=== PATIENT | male | born 1975 | race Caucasian/White ===

== ENCOUNTER 2022-07-30 06:50 | Day surgery (SDC) | payer OTHER, SELFPAY ==
[2022-07-30 07:22] VITALS: BP 141/93; PULSE 86; RESP 16; TEMP 36.6; O2SAT 99
[2022-07-30 07:24] VITALS: BMI 30.4
[2022-07-30] MEDS: LACTATED RINGERS 1000 ML 1,000 ML 100 ML IV (07:45)
--- NOTE | 2022-07-30 07:56 | SUR.PREOP ---
DIFFICULT IV START.
[2022-07-30] MEDS: CEFAZOLIN 2 GM INJ IVP (07:57)
[2022-07-30] MEDS: BUPIVACAINE 0.25% 30 ML 20 ML INJECTION (09:00)
[2022-07-30 09:25] VITALS: BP 102/75; PULSE 86; RESP 16; TEMP 36.3; O2SAT 96
--- NOTE | 2022-07-30 09:26 | W.ANESCHARGE ---
Anesthesia Charges Start Date/Time Anesthesia Start Date: 07/30/22 Anesthesia Start Time: 07:57 Stop Date/Time Anesthesia Stop Date: 07/30/22 Anesthesia Stop Time: 09:24 Summary Emergency: No
[2022-07-30 09:40] VITALS: BP 107/65; PULSE 86; RESP 16; TEMP 36.3; O2SAT 96
--- NOTE | 2022-07-30 09:47 | PM.GSPRC ---
Operative Note Date of procedure: 07/30/22 Type of Procedure: 1. Excision of symptomatic left inguinal skin lesion. 2. Excision of right upper arm mass. Procedure Description: After discussing the risks and benefits of the procedure, the patient signed informed consent.? The operative site was marked and the patient was brought to the operating room and placed on the operating table in supine position.? Care was taken to pad the patient's pressure points.?? The patient was then sedated by anesthesia.?? The operative site was then prepped and draped in the usual sterile fashion.? A time-out was then performed. ? We first started with excision of the left inguinal lesion. Local anesthetic was injected in the surgical site. An elliptical skin incision was made with a scalpel excising the area of induration and verrucous appearance of the skin. Dermis and soft tissue were divided with cautery. The excision was carried down to the muscle fascia. Medially, the dermis and soft tissues were indurated. This excision included the majority of indurated tissue. There was not a cyst noted in the excised tissue. There was no tract going down to the underlying muscle fascia or tissues. The ellipse of skin and soft tissue was then excised and marked with a single stitch superior and double lateral. This was sent to pathology. It was measuring 6 x 2 cm. Hemostasis was achieved with cautery. The soft tissue and dermis were reapproximated in layers with interrupted 2-0 and 3-0 Vicryl sutures. The skin was closed with a running 4-0 Monocryl stitch. The incision was 7 cm in length. Exofin was applied over the incision. I then turned my attention to the right upper arm mass. Patient's tattoo extended to the superior portion of the mass. Local anesthetic was injected at the surgical site. An oblique elliptical skin incision was made just inferior to the patient's tattoo and over the palpable mass. Dermis and subcutaneous fat were divided with cautery. With cautery and blunt finger dissection the mass was mobilized and dissected of the muscle fascia. The mass was measuring 6 x 7 cm. Additional local anesthetic was injected in the surgical site. Hemostasis was achieved with cautery. The mass was then sent to pathology. The incision was closed in layers with interrupted 2-0 and 3-0 Vicryl sutures. The skin was closed with a running 4-0 Monocryl stitch. The length of the incision was 6 cm. Exofin was placed over the incision. ? The patient was then woken and transported to the recovery area in stable condition. ? The patient tolerated the procedure well. Findings: Indurated skin and soft tissue in the left groin. The right upper arm mass had an appearance of lipoma. Anesthesia: MAC and local Surgeon: José Miguel Liu MD Estimated blood loss (mL): 5 Condition: stable Disposition: same day
[2022-07-30 09:55] VITALS: BP 107/65; PULSE 74; RESP 16; O2SAT 96
--- NOTE | 2022-07-30 11:38 | W.ANESCHARGE ---
Anesthesia Charges Start Date/Time Anesthesia Start Date: 07/30/22 Anesthesia Start Time: 07:57 Stop Date/Time Anesthesia Stop Date: 07/30/22 Anesthesia Stop Time: 09:24 Summary Emergency: No
== END 2022-07-30 10:14 | disposition home or self-care (01) ==
PROVIDERS: Visit Provider Surgery
PROC: (CPT 11406; principal; 2022-07-30 08:00)
DX: D17.21 Benign lipomatous neoplasm of skin and subcutaneous tissue of right arm (principal); L57.0 Actinic keratosis; L98.8 Other specified disorders of the skin and subcutaneous tissue
CPT/HCPCS: 11406; 12032; 24071; 00400; 88304; 88305; J0690; J2250; J2405; J2704; J3010; J3490; J7120